=== PATIENT | female | born 1955 | race Caucasian/White ===

== ENCOUNTER → 2022-11-04 | Outpatient (CLI) | payer OTHER, MEDICARE, SELFPAY ==
--- NOTE | 2022-11-04 10:14 | RAD_ITS ---
PROCEDURE: Fluoroscopic guided left hip injection. DATE: 11/04/2022 INDICATION: 67-year-old male with chronic left hip pain. PHYSICIAN: Kristian Machado D.O. MEDICATIONS: 2 cc of betamethasone, 3 cc of 1% lidocaine. 5 cc of 2% lidocaine was administered subcutaneously for local anesthesia. ACCESS SITE: Left hip. NEEDLE: 22-gauge spinal needle. FLUOROSCOPY TIME (if supplied): 10 seconds. One image obtained. Total exposure: 3.87 mGy. FINDINGS: The risks, benefits, and alternatives to the procedure were explained to the patient. The specific risks of bleeding, infection, and neurovascular injury were detailed and accepted. Witnessed informed consent was obtained. Injection site in the left hip was selected utilizing fluoroscopy. The area was then prepared with usual sterile technique utilizing iodine prep. 5 cc of 2% lidocaine was administered locally utilizing a 25-gauge injection needle. A 22-gauge spinal needle was then placed into the left hip joint cavity utilizing periodic fluoroscopic guidance. Placement of the needle into the joint space was confirmed by injecting 2 to 3 cc of 50:50 normal saline/Isovue contrast mixture. The 5 cc mixture of betamethasone and 1% lidocaine was then injected into the joint cavity. The patient tolerated the procedure well without any immediate complications. The patient was discharged home in stable condition. RAD/Inj/Asp Colin Jt Should/Hip/Knee IMPRESSION: Successful fluoroscopic guided left hip steroid injection. Electronically Signed: Kristian Machado DO at 13:45 EDT ,
[2022-11-04] MEDS: Lidocaine 2% (5ml sdv) 5 ML VIAL.MPF INFILT (10:53)
[2022-11-04] MEDS: Lidocaine 1% (5 ml sdv) 5 ML Vial 3 ML OPERA.SITE (11:03)
[2022-11-04] MEDS: Betamethasone/Betamethasone 30 MG/5 ML Vial 6 MG INTRAARTIC (11:03)
== END | disposition home or self-care (01) ==
PROVIDERS: PCP Nurse Practitioner Adult Health; Referring Provider Specialist; Visit Provider Specialist
DX: M16.12 Unilateral primary osteoarthritis, left hip (principal)
CPT/HCPCS: 20610; 77002; J0702

== ENCOUNTER → 2023-08-15 | Outpatient (CLI) | payer OTHER, MEDICARE, SELFPAY ==
--- NOTE | 2023-08-15 09:51 | CT_ITS ---
EXAM: CT RIGHT UPPER EXTREMITY WITHOUT INTRAVENOUS CONTRAST CLINICAL INDICATION: Contusion of right elbow, initial encounter TECHNIQUE: Helically acquired images were obtained of the right upper extremity without intravenous contrast. 2-D reformats were performed by the technologist. This CT exam was performed using one or more of the following dose reduction techniques: automated exposure control, adjustment of the mA and/or kV according to patient size, and/or use of iterative reconstruction technique. COMPARISON: No relevant prior studies available. FINDINGS: BONES/JOINTS: Unremarkable. No acute fracture. No subluxation. Normal alignment. Preservation of the joint space. No sclerotic or destructive changes. SOFT TISSUES: Unremarkable. No soft tissue swelling or gas. No radiopaque foreign body. CT/Extremity Upper without Contra IMPRESSION: No acute fracture or subluxation. Electronically Signed: Smith Mcrae MD at 23:43 EDT ,
== END | disposition home or self-care (01) ==
LOC: CT 09:48
PROVIDERS: PCP Nurse Practitioner Adult Health; Referring Provider Physician Assistant; Visit Provider Physician Assistant
DX: S50.01XA Contusion of right elbow, initial encounter (principal); M25.521 Pain in right elbow
CPT/HCPCS: 73200